=== PATIENT | female | born 1985 | race Caucasian/White ===

== ENCOUNTER 2023-07-11 05:25 | Emergency (ER) | payer OTHER, SELFPAY ==
[2023-07-11 05:26] VITALS: BP 127/85; PULSE 85; RESP 28; TEMP 37.1; O2SAT 96; BMI 40.0
[2023-07-11 05:28] VITALS: BP 127/85; PULSE 84; RESP 28; TEMP 37.1; O2SAT 96
--- NOTE | 2023-07-11 05:32 | RAD_ITS ---
INDICATION: cough sob EXAMINATION/TECHNIQUE: X-RAY - XR Chest 2 Views COMPARISON: None. FINDINGS: LINES/DEVICES: None. LUNGS: No consolidation or evidence of an effusion. No evidence of edema or a pneumothorax. MEDIASTINUM AND CARDIOVASCULAR STRUCTURES: Cardiac silhouette is normal in size and contour. Mediastinum is unremarkable. BONES AND SOFT TISSUES: No acute abnormality. RAD/Chest PA and Lateral IMPRESSION: No evidence of cardiopulmonary disease. Electronically Signed: Philip Leger DO at 6:48 EST ,
--- NOTE | 2023-07-11 05:32 | ED.VIS.DYS ---
HPI History of Present Illness Chief Complaint: Shortness of Breath Informant: patient Narrative Narrative: Patient having shortness of breath, chest tightness, some wheezing for the past 3-1/2 hours. She woke up like this. She has been having subjective fevers, nonproductive cough, nasal congestion and rhinorrhea for the past 4 or 5 days. Recently traveled here via train from [place]. No leg pain or swelling or orthopnea. No sore throat or GI symptoms. No history of asthma, other lung conditions, heart conditions, or any other medical conditions that she knows of. She tried to draw up a violetta bath to see if that would help prior to coming here. It did not help. PFSH PFSH Medical History no medical history no medical history Home Medications albuterol sulfate 90 mcg/actuation aerosol inhaler (Ventolin HFA) 1 - 2 puff inhalation Q4H PRN PRN Wheezing ##1 07/11/23 [Rx Last Taken Unknown] Allergy/AdvReac Type Severity Reaction Status Date / Time No Known Allergies Allergy Verified 07/11/23 05:26 Surgical History Hx of appendectomy Social History Smoking Status: Never smoker ROS [facility] ED Constitutional Constitutional ED: Reports fever(s) and subjective; Denies chills ENT ENT ED: Reports nasal congestion and rhinorrhea; Denies ear pain or sore throat Cardiovascular Cardiovascular: Denies chest pain or palpitations Respiratory/Chest Respiratory/Chest: Reports chest tightness, cough and dyspnea; Denies sputum Gastrointestinal Gastrointestinal: Denies abdominal pain, diarrhea, nausea or vomiting Genitourinary Genitourinary ED: Denies dysuria or hematuria Musculoskeletal Musculoskeletal: Denies myalgias or neck pain Integumentary Denies abscess or rash Neurologic Neurologic: Denies headache(s), paresthesias or weakness Psychiatric Psychiatric: Denies depression or suicidal thoughts Endocrine Endocrinology: Denies polydipsia or polyuria EXAM Physical Exam Const Vital Signs: 07/11/23 05:26 07/11/23 05:28 07/11/23 05:32 Temperature 98.8 F 98.8 F Temperature Source Temporal Temporal Pulse Rate 85 84 Respiratory Rate 28 H 28 H Respiratory Effort Short of Breath Labored Respiratory Pattern Tachypnea Blood Pressure 127/85 H 127/85 H Blood Pressure Mean 99 99 Pulse Ox 96 96 07/11/23 05:43 Temperature Temperature Source Pulse Rate 84 Respiratory Rate 22 H Respiratory Effort Respiratory Pattern Blood Pressure Blood Pressure Mean Pulse Ox Positive well nourished, well developed and obese General Appearance ED: well developed and NAD Nutritional Appearance: obese HEENT Reports moist mucous membranes normocephalic and atraumatic Throat: Negative for posterior oropharynx abnormal Eyes PERRL and EOMs intact bilaterally Neck no lymphadenopathy, supple and no meningeal signs Resp normal respiratory effort Resp Narrative: Slight expiratory wheezes throughout all dominique. Otherwise lungs clear and equal bilaterally. Effort and Inspection: able to speak in complete sentences Cardio no murmurs Rate: regular rate; Negative for tachycardic Rhythm: regular rhythm GI non-tender and non-distended Auscultation: normoactive bowel sounds Back/Spine no CVA tenderness and normal to inspection Extremity normal to inspection Extremity Narrative: No calf tenderness or cords General Extremety ED: Negative for edema General Extremity: Negative for edema Neuro oriented x3, CN's II-XII intact bilaterally and no sensory deficits noted Sensorium / Orientation: alert Motor Exam: strength 5/5 throughout Psych mental status grossly normal Skin no wounds Lesions: no lesions Rashes: no rashes MDM MDM MDM Narrative Medical decision making narrative: Differential includes wheezy bronchitis, bacterial pneumonia, viral pneumonia, PE although much less likely due to lack of tachycardia, lack of hypoxemia, lack of clinical signs of DVT, and subjective and objective presence of wheezing. 2 view chest x-ray negative/normal in my interpretation, radiology in agreement. Patient was given a duo nebulizer treatment and felt much better with regards to her breathing and wheezing on reevaluation. Viral swab is positive for influenza B, this is consistent with her syndrome. Do not think she needs further emergent testing right now. She is not a candidate for Tamiflu, but I am going to prescribe her an albuterol MDI to use as needed for symptoms in addition to recommended supportive care with regards to fluids, [id number] cold and flu medications, and Tylenol/ibuprofen as needed for aches, pains, fevers. She is comfortable with the plan discharged with appropriate instructions. Discharge Plan Triage Chief Complaint: Shortness of Breath ED Provider: Pablito Rodríguez Dx/Rx/DC Orders Clinical Impression: Influenzal bronchitis Instructions: ED Bronchitis with Wheezing (Adult), ED Influenza (Adult) Prescriptions: New albuterol sulfate [Ventolin HFA] 90 mcg/actuation HFA aerosol inhaler 1 - 2 puff inhalation Q4H PRN PRN (Reason: Wheezing) Qty: 1 0RF Primary Care Provider: Care Physician,No Primary Referrals: NOT,DEFINED [Non-Staff] - 1 Week if not improving Disposition Disposition: Home, Self Care
[2023-07-11] MEDS: Ipratropium/Albuterol Sulfate 3 ML AMPUL.NEB INHALATION (05:41)
[2023-07-11 05:43] VITALS: PULSE 84; RESP 22
[2023-07-11 06:58] VITALS: BP 123/79; PULSE 71; RESP 19; TEMP 36.6; O2SAT 99
== END 2023-07-11 06:59 | disposition home or self-care (01) ==
PROVIDERS: Emergency Provider Emergency Medicine; Visit Provider Emergency Medicine
DX: J11.1 Influenza due to unidentified influenza virus with other respiratory manifestations (principal); E66.9 Obesity, unspecified
CPT/HCPCS: 71046; 87631; 94640; 99282